=== PATIENT | male | born 1965 | race Caucasian/White ===

== ENCOUNTER 2019-02-04 11:49 | Emergency (ER) | payer OTHER ==
[~2019-02-04] VITALS: Ht 188 cm; Wt 77.1 kg
[2019-02-04 12:08] VITALS: BP 137/75
[2019-02-04] MEDS ORDERED: HYDROcodone/APAP 5/325MG 1 TAB TABLET PO ONE (12:30)
--- NOTE | 2019-02-04 12:41 | RAD ---
Examination: ANKLE RIGHT 3V, FOOT RIGHT 3V History: FORK LIFT BACKED INTO RIGHT FOOT YESTERDAY PAIN AND BRUISING Comparison/Correlation: None Findings: 3 images the right foot and 3 images of the right ankle were obtained. Degenerative changes of the first metatarsophalangeal joint joint noted. Small calcaneal spur is present. Curvilinear lucency involving the medial first metatarsal head is present on the oblique view but of indeterminate significance. No soft tissue swelling at this site. No displaced fracture or bony destruction. Ankle joint mortise is unremarkable. Small ankle joint effusion may be present. No radio opaque foreign body. Impression: No definite acute fracture. Electronically signed by: Phil Mcmanus MD (02/04/2019 12:38 PM) [facility]
[2019-02-04] MEDS ORDERED: HYDR-3164 PO (13:12)
--- NOTE | 2019-02-04 13:13 | PHYS DOC ---
Past Medical History Past Medical History: Other Additional Past Medical Histor: RA Past Surgical History: No Surgical History Alcohol Use: Heavy Additional Information: WHISKEY 1/2 PINT A DAY Drug Use: Marijuana Adult General Chief Complaint Chief Complaint: FOOT INJURY PAIN HPI HPI 54-year-old male presents to ER via POV for complaints of right foot and ankle pain which occurred yesterday while at work. He reports he was moving pallets and one of the pallets rolled backwards striking the front of his steel toed shoes causing his boot and foot to bend backwards. Patient states that he had instant pain to his foot but he kept working. Patient states once he took his boot off he had instant swelling and bruising to the top portion of his foot down towards his toes. Patient states he has been able to walk but does have increased pain with weightbearing. Patient states he has had some ankle pain denies swelling. Patient states he took ibuprofen last night and again today with minimal relief in pain. Review of Systems Review of Systems Constitutional: Denies fever Respiratory: Denies cough or shortness of breath [] Cardiovascular: No additional information not addressed in HPI [] GI: Denies nausea, vomiting Musculoskeletal: Reports rt ankle/foot pain with swelling top of rt foot Integument: Reports swelling/bruising rt foot Neurologic: Denies focal weakness or sensory changes [] All other systems were reviewed and found to be within normal limits, except as documented in this note. Current Medications Current Medications Current Medications Medications (Trade) Dose Ordered Sig/Octavio Start Time Stop Time Status Last Admin Dose Admin Acetaminophen/ Hydrocodone Bitart (Lortab 5/325) 1 tab 1X ONCE 02/04/19 12:30 02/04/19 12:31 DC 02/04/19 12:33 1 TAB Allergies Allergies Allergies Coded Allergies Type Severity Reaction Last Updated Verified No Known Drug Allergies 02/04/19 No Physical Exam Physical Exam Constitutional: Well developed, well nourished, no acute distress, non-toxic appearance. [] HENT: Normocephalic, atraumatic, oropharynx moist, nose normal. [] Eyes: Pupils equal, conjunctiva normal, no discharge. [] Neck: Normal range of motion, no tenderness, supple, no stridor. [] Cardiovascular:Heart rate regular Lungs & Thorax: Resp. equal/nonlabored Skin: Warm, dry Extremities: No cyanosis, no clubbing. Lt LE exam NL. Rt lower extremity with swelling dorsal surface of rt foot with ecchymosis at base of 2-4 toes- decreased ROM in toes. Tender in bilat. sides of malleolus with ROM; no tenderness in calcaneus. Full ROM of rt ankle/knee. No tenderness in knee on palp. No palp. deformity in rt LE. 2+ posterior tibial bilat. Difficult to palp. dorsalis pedis in rt foot with swelling Neurologic: Alert and oriented X 3, normal motor function, normal sensory function, no focal deficits noted. [] Psychologic: Affect normal, judgement normal, mood normal. [] Current Patient Data Vital Signs Vital Signs Date Time Temp Pulse Resp B/P (MAP) Pulse Ox O2 Delivery O2 Flow Rate FiO2 02/04/19 12:33 20 02/04/19 12:08 98.1 78 137/75 (95) 96 Room Air 98.1 EKG EKG [] Radiology/Procedures Radiology/Procedures PROCEDURE: FOOT RIGHT 3V Examination: ANKLE RIGHT 3V, FOOT RIGHT 3V History: FORK LIFT BACKED INTO RIGHT FOOT YESTERDAY PAIN AND BRUISING Comparison/Correlation: None Findings: 3 images the right foot and 3 images of the right ankle were obtained. Degenerative changes of the first metatarsophalangeal joint joint noted. Small calcaneal spur is present. Curvilinear lucency involving the medial first metatarsal head is present on the oblique view but of indeterminate significance. No soft tissue swelling at this site. No displaced fracture or bony destruction. Ankle joint mortise is unremarkable. Small ankle joint effusion may be present. No radio opaque foreign body. Impression: No definite acute fracture. Electronically signed by: Phil Maldonado MD (02/04/2019 12:38 PM) [facility] DICTATED and SIGNED BY: PHIL MALDONADO MD DATE: 02/04/19 1238 Course & Med Decision Making Course & Med Decision Making Pertinent Imaging studies reviewed. (See chart for details) Pt was evaluated in the ER for complaints of right foot and ankle injury which occurred yesterday. Patient had x-rays obtained with no acute obvious findings for fracture or obvious abnormality. Discussed x-ray results with patient. Discussed plans for Donal wrap, ortho shoe, and crutches to be provided. Advised patient he would need follow-up appointment with orthopedics for reevaluation and further care as he may need additional imaging after swelling reduces in right foot. Pt was provided with dose of pain medicine while in the ER and will be provided with prescription with discharge paperwork. Will provide referral information on discharge paperwork for orthopedics.Education provided on signs and symptoms to return to ER. Discharge instructions were discussed. Patient to follow-up with primary care physician if symptoms persist or with any concerns. Prior to and following wrap and ortho shoe placement patient was PMS intact in right lower extremity. Patient reports he did have some improvement in pain since arriving to ER and receiving pain medication as well as having Donal wrap applied to right foot. Dragon Disclaimer Dragon Disclaimer This electronic medical record was generated, in whole or in part, using a voice recognition dictation system. Departure Departure Impression: Primary Impression: Injury of foot Additional Impression: Contusion Disposition: HOME, SELF-CARE Condition: STABLE Referrals: NO PCP (PCP) BIJAL RENEE MD Patient Instructions: Crutch Use, Elastic Bandage and RICE, Foot Contusion Additional Instructions: Call and schedule appointment with orthopedic doctor as soon as possible for re- evaluation and further care. Ibuprofen as directed on container as needed for pain relief. Ice pack to foot every 3-4 hours for 20-30 minutes. Scripts Hydrocodone/Apap 5-325 (NORCO 5-325 TABLET) 1 Each Tablet 1 TAB PO PRN Q6HRS PRN for PAIN, #12 TAB 0 Refills No drinking alcohol or driving while taking this medication Prov: CAREN VERA APRN 02/04/19 Problem Qualifiers CAREN VERA APRN Feb 04, 2019 13:13
== END 2019-02-04 13:40 | disposition home or self-care (01) ==
LOC: ER 11:49
DX: S90.31XA Contusion of right foot, initial encounter (principal); M06.9 Rheumatoid arthritis, unspecified; F10.20 Alcohol dependence, uncomplicated; Y90.9 Presence of alcohol in blood, level not specified; W31.89XA Contact with other specified machinery, initial encounter; Y93.89 Activity, other specified; Y92.89 Other specified places as the place of occurrence of the external cause; Y99.0 Civilian activity done for income or pay
CPT/HCPCS: 73610; 73630; 99284